=== PATIENT | female | born 1960 | race Two or more races ===

== ENCOUNTER 2025-01-04 10:47 | Emergency (ER) | payer OTHER ==
[~2025-01-04] VITALS: Ht 165.1 cm; Wt 63.5 kg
[~2025-01-04 10:47] MED LIST: AMOXICILLIN500 MG PO
[2025-01-04] MEDS ORDERED: KETOROLAC TROMETHAMINE 60 MG VIAL IM ONE (13:45)
[2025-01-04] MEDS ORDERED: GABAPENTIN100 M2 PO (16:16)
[2025-01-04] MEDS ORDERED: IBU800 MG PO (16:16)
== END 2025-01-04 16:52 | disposition home or self-care (01) ==
LOC: ER 10:47
DX: G56.00 Carpal tunnel syndrome, unspecified upper limb (principal); Z91.013 Allergy to seafood